=== PATIENT | male | born 1950 | race Caucasian/White ===

== ENCOUNTER 2022-10-20 02:14 | Emergency (ER) | payer MEDICARE, BC, SELFPAY ==
[2022-10-20 02:23] VITALS: BP 145/101; PULSE 77; RESP 18; TEMP 36.1; O2SAT 97; BMI 36.2
--- NOTE | 2022-10-20 02:36 | CRLHL7_ITS ---
For Patients: As a result of the Century Cures Act, medical imaging exams and procedure reports are released immediately into your electronic medical record. You may view this report before your referring provider. If you have questions, please contact your health care provider. INDICATION: Cough TECHNIQUE: Chest 2 views. COMPARISON: September 25, 2019 FINDINGS: Cardiovascular and mediastinum: Heart size and vasculature are normal in caliber and appearance. Mediastinum is within normal limits. Right-sided Port-A-Cath tip terminates at the level of the cavoatrial junction. Lungs and pleural spaces: Patchy opacity in the left lower lobe. No sign of pleural effusion. No pneumothorax. Bones and soft tissues: No significant findings. IMPRESSION: Patchy left lower lobe atelectasis or infiltrate. Dictated by Sofi Moseley MD @ 10/20/2022 3:30:41 AM (Electronically Signed)
[2022-10-20] MEDS: IPRAT-ALBUT 0.5-2.5 MG/3 ML NEB 1 NEB IH (02:40)
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
[2022-10-20 03:46] VITALS: BP 135/95; PULSE 67; RESP 18; O2SAT 95
== END 2022-10-20 03:49 | disposition home or self-care (01) ==
PROVIDERS: Emergency Provider Emergency Medicine
DX: J18.9 Pneumonia, unspecified organism (principal)
CPT/HCPCS: 71046; 94640; 99283; 99284

== ENCOUNTER 2022-10-30 01:54 | Emergency (ER) | payer MEDICARE, BC, SELFPAY ==
[2022-10-30 02:00] VITALS: BP 153/102; PULSE 95; RESP 28; TEMP 35.6; O2SAT 94
--- NOTE | 2022-10-30 02:01 | ED_ITS ---
HPI - General Adult General Time Seen by Provider: 02:01 Date Seen: 10/30/22 Chief complaint: Shortness of Breath/Dyspnea Stated complaint: coughing spams, hard time breathing Time Seen by Provider: 10/30/22 02:01 Source: patient and RN notes reviewed Mode of arrival: ambulatory Limitations: no limitations History of Present Illness HPI narrative: Patient is a 72-year-old male coming into the ER with difficulty breathing tonight. He has been feeling wheezy, short of breath and coughing. He has been using his albuterol inhaler 70 8 times a day. He has had a recent complex course with diagnosis of COVID September 24 and pulmonary embolism before that about a month, on Eliquis. He was recently into the ER with respiratory symptoms, was seen September 19. There was potential pneumonia on the chest x-ray, was given prednisone and antibiotics, was noted to be wheezing. He denies any fevers or night sweats. Patient is noted to have a port, has history of prostate cancer. Related Data Home Medications Medication Instructions Recorded Confirmed apixaban 5 mg tablet (Eliquis) 5 mg PO 09/24/22 aspirin 81 mg tablet,delayed 81 mg PO DAILY 09/24/22 10/20/22 release (Adult Aspirin Regimen) bupropion HCl 300 mg 24 hr tablet, 300 mg PO DAILY 09/24/22 10/20/22 extended release dorzolamide 22.3 mg-timolol 6.8 1 drp ophthalmic (eye-right) BID 09/24/22 10/20/22 mg/mL eye drops gabapentin 300 mg capsule 300 mg PO 09/24/22 losartan 100 mg tablet 100 mg PO DAILY 09/24/22 10/20/22 pantoprazole 40 mg tablet,delayed 40 mg PO DAILY 09/24/22 10/20/22 release simvastatin 40 mg tablet 40 mg PO QPM 09/24/22 10/20/22 Previous Rx's Medication Instructions Recorded albuterol sulfate 90 mcg/actuation 2 puff inhalation Q4H PRN 09/24/22 aerosol inhaler shortness of breath or wheezing #8.5 grams nirmatrelvir 300 mg (150 mg See Rx Instructions PO .COMPLEX 09/24/22 x2)-ritonavir 100 mg tablet,dose #30 ea pack (Paxlovid) prednisone 20 mg tablet 40 mg (2 x 20 mg) PO DAILY 5 days 09/24/22 #10 tabs ipratropium 0.5 mg-albuterol 3 mg 3 ml inhalation Q6H PRN #90 mL 10/30/22 (2.5 mg base)/3 mL nebulization soln Allergies Allergy/AdvReac Type Severity Reaction Status Date / Time shellfish derived Allergy Severe Verified 09/24/22 13:54 LESLI Inhibitors Allergy Intermediate Verified 09/24/22 13:54 typhoid vaccine Allergy Intermediate Verified 09/24/22 13:54 Review of Systems Status of ROS: Reports: 6 or more systems reviewed and unremarkable except as noted in History and below [facility] Social History Smoking Status: Never smoker Do you use any of these nicotine containing products: None How often do you have a drink containing alcohol: 2-3 times a week How many standard drinks containing alcohol do you have on a typical day: 1 or 2 AUDIT-C Alcohol total score: 3 Non-prescribed substance use: denies use service: Yes Exam Const: Vital Signs, click to edit/add: Vital Signs - 24 hr 10/30/22 02:00 10/30/22 02:06 Temperature 96.0 F L Pulse Rate [Right Pulse Oximeter] 95 Respiratory Rate 28 H Blood Pressure [Ri ght Upper Arm] 153/102 H Pulse Oximetry 94 94 Oxygen Delivery Me thod Room Air Documenting provider has reviewed patient's vital signs: yes Common normals: oriented x3, alert and well nourished General appearance: cooperative, well kempt, well developed and ill appearing Nutritional appearance: overweight Other: Skin feels cool, clammy, no rash noted. HENMT: Common normals: normocephalic, head/scalp atraumatic, hearing grossly normal bilaterally, external ears normal, external nose normal and moist oral mucous membranes Head and scalp: normocephalic and atraumatic Face and sin us: normal facial exam Nose: external nose normal External ear: external ears normal Eye: Common normals: PERRL, EOMs intact bilaterally, conjunctivae normal and no scleral icterus Conjunctiva: conjunctiva(e) normal Pupil: PERRL Neck & C-Spine: Common normals: full ROM, no lymphadenopathy, supple and no meningeal signs Resp: Effort & inspection: able to speak in complete sentences Other: Has audible wheezing, some component of forced end-expiratory wheezing. Voice is not hoarse. Do here wheezing in all lung rivera, no crackles. Cardio: Other: Heart sounds difficult to hear due to noisy chest. Does sound regular, cannot hear a murmur at this time. GI: Common normals: Normal to inspection, nondistended, normoactive bowel sounds present, soft to palpation, non-tender, no hepatosplenomegaly and no masses Palpation: soft and no hepatosplenomegaly Extremity: Common normals: no calf tenderness and no pedal edema Neuro: Common normals: oriented x3 Sensorium/orientation: alert Meningeal signs: no meningeal signs Psych: Appearance: well kempt Course Course Hospital Course: Patient with active respiratory difficulty with wheezing. History is complex with recent probable community-acquired pneumonia on the 18th of this month. Has had COVID in subsequent pulmonary emboli diagnosed. Is reporting increased use of his inhaler at home. Will does 40 mg oral steroids as well as a DuoNeb. Unfortunately there is significant shortage of IV steroids and will need to use oral. Will start with a portable chest x-ray, obtain further labs. Will look at cardiac markers to ensure that this is not ischemic disease, congestive heart failure. Again chest x-ray is pending as well. Will consider advanced imaging if need be. Reevaluation(s) Time of Reevaluation #1: 03:12 Reevaluation #1: Patient states he is actually feeling better. He is no longer coughing, can speak better, no wheezing. On auscultation of his lungs, somewhat distant breath sounds but no wheezing or crackles heard. Reviewed with him his labs are normal. My preliminary review of his chest x-ray is that there is no acute pathology, apices on this film our cut off but overall I see no acute pathology. I am not concerned about a pneumothorax given his symptoms and improvement with a nebulization. He is wondering if she could have a nebulizer at home. I do think this might be a good idea for him. I have also reviewed with him that it will be necessary to follow-up, do think that he should be considered for pulmonary function studies. At this time, does not appear that antibiotics are indicated but again we need to await the radiologist's over-read. Vital Signs Vital signs: Initial Vital Signs Temperature 96.0 F L 10/30/22 02:00 Temperature Source Temporal Artery Scan 10/30/22 02:00 Pulse Rate 95 10/30/22 02:00 Pulse Rhythm Regular 10/30/22 02:00 Respiratory Rate 28 H 10/30/22 02:00 Blood Pressure 153/102 H 10/30/22 02:00 Blood Pressure Mean 119 H 10/30/22 02:00 Blood Pressure Position Sitting 10/30/22 02:00 Pulse Oximetry 94 10/30/22 02:00 Oxygen Delivery Method Room Air 10/30/22 02:00 Vital Signs Temperature 96.0 F L 10/30/22 02:00 Pulse Rate 95 10/30/22 02:00 Respiratory Rate 28 H 10/30/22 02:00 Blood Pressure 153/102 H 10/30/22 02:00 Pulse Oximetry 94 10/30/22 02:00 Oxygen Delivery Method Room Air 10/30/22 02:00 Temperature 96.0 F L 10/30/22 02:00 Pulse Rate 95 10/30/22 02:00 Respiratory Rate 28 H 10/30/22 02:00 Blood Pressure 153/102 H 10/30/22 02:00 Pulse Oximetry 94 10/30/22 02:06 Oxygen Delivery Method Room Air 10/30/22 02:00 Medical Decision Making Lab Data Lab results reviewed: Yes I reviewed the patient's lab results Labs: Lab Results 10/30/22 10/30/22 Range/Units 02:07 02:20 WBC 6.72 (4.50-11.00) K/uL RBC 4.75 (4.30-5.90) m/uL Hgb 14.6 (13.5-17.5) gm/dL Hct 43.3 (37.0-53.0) % MCV 91 (80-100) fL MCH 31 (26-34) pg MCHC 34 (32-36) gm/dL RDW Coeff of Joe 13.5 (11.5-15.5) % Plt Count 212 (140-440) K/uL Neut % (Auto) 46.7 (42.0-72.0) % Lymph % (Auto) 29.8 (20-44) % [place] % (Auto) 14.7 H (0.0-11.0) % Eos % (Auto) 7.9 H (0.0-7.0) % Baso % (Auto) 0.3 (0.0-3.0) % Neut # (Auto) 3.14 (1.7-7.0) K/uL Lymph # (Auto) 2.00 (0.90-2.90) K/uL [place] # (Auto) 1.00 H (0.00-0.90) K/UL Eos # (Auto) 0.50 (0.00-0.50) K/uL Baso # (Auto) 0.02 (0.00-0.30) K/uL VBG pH 7.397 (7.32-7.43) VBG pCO2 44 (40-50) mmHG VBG pO2 36.8 (25-47) mmHG VBG HCO3 27 (21-28) mmol/L Sodium 137 (135-149) mmol/L Potassium 4.2 (3.6-5.1) mmol/L Chloride 104 (96-114) mmol/L Carbon Dioxide 27 (20-32) mmol/L BUN 21 (7-30) mg/dL Creatinine 0.9 (0.5-1.5) mg/dL Estimated GFR 91 ml/min Glucose 117 H (60-115) mg/dL Lactate 0.9 (0.5-1.9) mmol/L Calcium 9.5 (8.4-10.6) mg/dL Total Bilirubin 0.7 (0.1-1.5) mg/dL AST 31 (12-35) U/L ALT 35 (4-50) U/L Alkaline Phosphatase 66 (40-150) U/L C-Reactive Protein 0.8 (0.5-1.0) mg/dL NT-Pro-B Natriuret Pep 38 pg/mL Total Protein 7.0 (6.0-8.3) g/dL Albumin 4.2 (3.3-5.0) g/dL POC Troponin I 0.00 L (0.01-0.04) ng/ml Imaging Data Chest x-ray: Attestation: I have reviewed the pertinent imaging results. My impression: The apices of the lungs are cut off in the imaging. Rest of the lung rivera show no evidence infiltrate, no effusion, no congestive heart failure on my preliminary review. Radiologist's impression: Patient: SAIRA BOLTON Facility:?[facility] Patient ID:?[id number] Site Patient ID:?[id number]. Site :?[id number] Study:?XRay Chest PORTABLE 1V-10/30/2022 3:07:02 AM Ordering Physician:Maverick Morgan Final Report: Indication: Shortness of breath, wheeze seen Technique: Chest 1 view Comparison: None Findings/Impression: The lung apices are excluded from this study. Visualized lung and pleural spaces demonstrate no focal infiltrate, effusion, or pneumothorax. Normal cardiac size. Right-sided Port-A-Cath tip terminates at the level of the cavoatrial junction. No acute osseous abnormality. Dictated by Sofi Moseley MD @ 10/30/2022 3:11:11 AM (Electronic Signature) ECG Data Attestation: I personally reviewed and interpreted this ECG as follows: (Normal sinus rhythm, 81 beats per minute. No acute change noted. QT corrected 439 milliseconds.) Prior ECG tracings: not available for review Discharge Plan Discharge Clinical Impression: Acute bronchospasm Patient Disposition: Home, Self-Care Condition: Stable Instructions: Bronchospasm (ED) Additional Instructions: Start oral prednisone on 10/31/2022, you were given 40 mg here in the ER. Get nebulizer, use DuoNebs as prescribed if needed for wheezing or cough. You can use your albuterol inhaler when you are not at home and in between nebulization if needed. You do need to schedule a follow-up in clinic, talk to her primary care provider about the possibility of doing formal pulmonary function testing if ongoing symptoms. Need to continue your regular medications including Eliquis. No evidence of any pneumonia or infectious etiology that would require antibiotics at this time. If you find that you are having increased difficulty breathing, develops fever with worsening cough, do recommend re-evaluation. Activity Level: Activity as Tolerated Prescriptions: New ipratropium-albuterol 0.5 mg-3 mg(2.5 mg base)/3 mL solution for nebulization 3 ml inhalation Q6H PRNQty: 90 0RF No Action simvastatin 40 mg tablet 40 mg PO QPM Hold Instructions: Doctor's Order pantoprazole 40 mg tablet,delayed release (DR/EC) 40 mg PO DAILY gabapentin 300 mg capsule 300 mg PO dorzolamide-timolol 22.3-6.8 mg/mL drops 1 drp ophthalmic (eye-right) BID losartan 100 mg tablet 100 mg PO DAILY bupropion HCl 300 mg tablet extended release 24 hr 300 mg PO DAILY Eliquis 5 mg tablet 5 mg PO aspirin [Adult Aspirin Regimen] 81 mg tablet,delayed release (DR/EC) 81 mg PO DAILY Hold Instructions: Doctor's Order albuterol sulfate 90 mcg/actuation HFA aerosol inhaler 2 puff inhalation Q4H PRN (Reason: shortness of breath or wheezing) Qty: 8.5 0RF Paxlovid 300 mg (150 mg x 2)-100 mg tablets,dose pack See Rx Instructions .ROUTE .COMPLEX Qty: 30 0RF Rx Instructions: take TWO 150 mg tablets of nirmatrelvir with ONE 100 mg tablet of ritonavir twice daily for 5 days prednisone 20 mg tablet 40 mg PO DAILY 5 Days Qty: 10 0RF Follow Up/Referrals: Provider,Not a Local [Primary Care Provider] - Stand Alone Forms: [employer] Info Instructions
[2022-10-30 02:06] VITALS: O2SAT 94
--- NOTE | 2022-10-30 02:06 | CRLHL7_ITS ---
For Patients: As a result of the Century Cures Act, medical imaging exams and procedure reports are released immediately into your electronic medical record. You may view this report before your referring provider. If you have questions, please contact your health care provider. Indication: Shortness of breath, wheeze seen Technique: Chest 1 view Comparison: None Findings/Impression: The lung apices are excluded from this study. Visualized lung and pleural spaces demonstrate no focal infiltrate, effusion, or pneumothorax. Normal cardiac size. Right-sided Port-A-Cath tip terminates at the level of the cavoatrial junction. No acute osseous abnormality. Dictated by Sofi Moseley MD @ 10/30/2022 3:11:11 AM (Electronically Signed)
[2022-10-30] MEDS: IPRAT-ALBUT 0.5-2.5 MG/3 ML NEB 1 NEB IH (02:10)
[2022-10-30 02:28] LABS: HCO3 VBG 27 mmol/L (21-28); PCO2 VBG 44 mmHG (40-50); PO2 VBG 36.8 mmHG (25-47); pH VBG 7.397 (7.32-7.43)
[2022-10-30 02:30] LABS: Basophils Absolute Auto 0.02 K/uL (0.00-0.30); Basophils Percent Auto 0.3 % (0.0-3.0); Eosinophils Percent Auto 7.9 % (0.0-7.0); Hematocrit 43.3 % (37.0-53.0); Hemoglobin* 14.6 gm/dL (13.5-17.5); Immature Granulocytes Abs Auto 0.04 K/uL (0.00-0.30); Immature Granulocytes Pct Auto 0.6 %; Lactate* 0.9 mmol/L (0.5-1.9); Lymphocytes Percent Auto 29.8 % (20-44); Mean Corpuscular HGB Conc 34 gm/dL (32-36); Mean Corpuscular Hemoglobin 31 pg (26-34); Mean Corpuscular Volume 91 fL (80-100); Monocytes Percent Auto 14.7 % (0.0-11.0); Neutrophils Absolute Auto 3.14 K/uL (1.7-7.0); Neutrophils Percent Auto 46.7 % (42.0-72.0); Platelet Count* 212 K/uL (140-440); RDW Coefficient of Variation % 13.5 % (11.5-15.5); Red Blood Count 4.75 m/uL (4.30-5.90); White Blood Count* 6.72 K/uL (4.50-11.00)
--- NOTE | 2022-10-30 02:30 | ED.NURSE ---
Right upper chest port accessed with james needle, no complications. blood drawn for labs and flushed with saline. Heparin ordered for deaccessing on discharge.
[2022-10-30 02:32] LABS: Slide Review Reflex No
[2022-10-30] MEDS: predniSONE 20 MG TABLET 40 MG PO (02:43)
[2022-10-30 02:44] LABS: Albumin* 4.2 g/dL (3.3-5.0); Chloride* 104 mmol/L (96-114); Sodium* 137 mmol/L (135-149)
[2022-10-30 02:45] LABS: Potassium* 4.2 mmol/L (3.6-5.1)
[2022-10-30 02:47] LABS: Alanine Aminotransferase* 35 U/L (4-50); Alkaline Phosphatase* 66 U/L (40-150); Aspartate Amino Transferase* 31 U/L (12-35); Bilirubin Total* 0.7 mg/dL (0.1-1.5); Blood Urea Nitrogen* 21 mg/dL (7-30); Carbon Dioxide* 27 mmol/L (20-32); Creatinine* 0.9 mg/dL (0.5-1.5); Estimated Glomerular Filt Rate 91 ml/min
[2022-10-30 02:48] LABS: Calcium* 9.5 mg/dL (8.4-10.6); Glucose* 117 mg/dL (60-115)
[2022-10-30 02:50] LABS: C Reactive Protein* 0.8 mg/dL (0.5-1.0)
[2022-10-30 02:56] LABS: NT Pro B Type NatriureticPept* 38 pg/mL
[2022-10-30 03:19] VITALS: PULSE 81; RESP 20; O2SAT 95
[2022-10-30] MEDS: HEPARIN 500 UNIT/5 ML SYRINGE IVF (03:26)
== END 2022-10-30 03:29 | disposition home or self-care (01) ==
PROVIDERS: Emergency Provider Family Medicine
DX: J98.01 Acute bronchospasm (principal)
CPT/HCPCS: 36415; 71045; 80053; 82803; 83605; 83880; 84484; 85025; 86140; 93005; 94640; 94761; 99284; 99285; J1642; J7512

== ENCOUNTER 2022-12-05 03:00 | Emergency (ER) | payer MEDICARE, BC, SELFPAY ==
[2022-12-05 03:06] VITALS: BP 148/91; PULSE 87; RESP 22; TEMP 36.8; O2SAT 94; BMI 35.5
--- NOTE | 2022-12-05 03:24 | CRLHL7_ITS ---
For Patients: As a result of the Century Cures Act, medical imaging exams and procedure reports are released immediately into your electronic medical record. You may view this report before your referring provider. If you have questions, please contact your health care provider. INDICATION: Dyspnea, cough. TECHNIQUE: Chest 2 views. COMPARISON: 10/30/2022. FINDINGS: Cardiovascular and mediastinum: Heart size and vasculature are normal in caliber and appearance. Unchanged right port catheter. Lungs and pleural spaces: Lungs are clear. No sign of infiltrate or mass. No sign of pleural effusion. No pneumothorax. Bones and soft tissues: No significant findings. IMPRESSION: No acute pulmonary process. Dictated by Abelardo Díaz MD @ 12/05/2022 4:17:56 AM (Electronically Signed)
--- NOTE | 2022-12-05 03:27 | ED_ITS ---
HPI - General Adult General Chief complaint: Shortness of Breath/Dyspnea Stated complaint: short of breath Time Seen by Provider: 12/05/22 03:02 Source: patient Mode of arrival: ambulatory Limitations: no limitations History of Present Illness HPI narrative: 72-year-old male with ongoing pulmonary struggles since July presents to the emergency department for evaluation of cough and wheezing. Apparently this is being worked up extensively by his primary care provider. Reports that his provider is through [facility], I do not have access to those records. He reports that he has had a chest CT within the last 2 months. He reports that this was unrevealing, did not change his treatment. 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 He does not remember what the medication is. He reports that he has been on prednisone for the last couple of months, does not know his dose. I cannot tell if this is a burst or a taper. He is completely unsure. He has been referred to a computer networking instructor adjunct and has an upcoming appointment. When I asked specifically what changed tonight, it is difficult for me to determine if his symptoms have been worsening over a long or short period of time. I asked about duration and worsening a couple of times directly and he does not answer at clearly. He denies fevers. There is no productive sputum, no hemoptysis. He has a remote history of a pulmonary embolism and is anticoagulated on Eliquis. He denies any exertional chest pain or chest pain at rest. He reports good compliance with his Eliquis. Apparently he has had spirometry within the last couple of weeks as well, I do not have access to those records either. He reports that he lost both his phone and I pad today and therefore cannot look up the results of the CT scan, spirometry or his medication list for me. He denies any pertinent travel. No known sick contacts. It sounds as though his symptoms started after COVID a few months ago. He reports that he has been evaluated in the emergency department a couple of times. There is a note that I can review from 5 weeks ago this sounds fairly similar to his current presentation. He is a nonsmoker and denies a history of COPD. He feels short of breath at rest but it does not worsen on exertion per his description. He has been using his albuterol nebulizer which helps minimally. Notes from 10/30 reviewed. Past medical history notable for remote history of prostate cancer, hypertension and hyperlipidemia, subacute pulmonary embolism on Eliquis, current workup for some degree of lung dysfunction. Medications that I can see through our records do not seem accurate based on his description. Unfortunately I do not have an accurate medication list despite attempting to get 1. Allergies reviewed. Socially he is a nonsmoker, lives independently. ROS is notable for the respiratory symptoms as above only, otherwise denies times 12 systems. Related Data Home Medications Medication Instructions Recorded Confirmed apixaban 5 mg tablet (Eliquis) 5 mg PO BID 09/24/22 12/05/22 bupropion HCl 300 mg 24 hr tablet, 300 mg PO DAILY 09/24/22 12/05/22 extended release dorzolamide 22.3 mg-timolol 6.8 1 drp ophthalmic (eye-right) BID 09/24/22 12/05/22 mg/mL eye drops gabapentin 300 mg capsule 300 mg PO BID 09/24/22 12/05/22 losartan 100 mg tablet 100 mg PO DAILY 09/24/22 12/05/22 pantoprazole 40 mg tablet,delayed 40 mg PO DAILY 09/24/22 12/05/22 release simvastatin 40 mg tablet 40 mg PO QPM 09/24/22 10/20/22 Previous Rx's Medication Instructions Recorded albuterol sulfate 90 mcg/actuation 2 puff inhalation Q4H PRN 09/24/22 aerosol inhaler shortness of breath or wheezing #8.5 grams ipratropium 0.5 mg-albuterol 3 mg 3 ml inhalation Q6H PRN #90 mL 10/30/22 (2.5 mg base)/3 mL nebulization soln benzonatate 200 mg capsule 200 mg PO BID PRN cough #60 caps 12/05/22 inhalational spacing device #1 ea 12/05/22 (Aerochamber MV spacer) ipratropium 0.5 mg-albuterol 3 mg 3 ml inhalation BID #180 mL 12/05/22 (2.5 mg base)/3 mL nebulization soln prednisone 20 mg tablet 20 mg PO BID #10 tabs 12/05/22 Allergies Allergy/AdvReac Type Severity Reaction Status Date / Time shellfish derived Allergy Severe Anaphylaxis Verified 12/05/22 03:54 LESLI Inhibitors Allergy Intermediate Rash Verified 12/05/22 03:54 typhoid vaccine Allergy Intermediate Hives Verified 12/05/22 03:54 [facility] Social History Smoking Status: Never smoker Do you use any of these nicotine containing products: None How often do you have a drink containing alcohol: 2-3 times a week How many standard drinks containing alcohol do you have on a typical day: 1 or 2 AUDIT-C Alcohol total score: 3 Non-prescribed substance use: denies use service: Yes Exam Const: Vital Signs, click to edit/add: Vital Signs - 24 hr 12/05/22 03:06 12/05/22 03:30 Temperature 98.2 F Pulse Rate [Left P ulse Oximeter] 87 Respiratory Rate 22 Blood Pressure [Le ft Upper Arm] 148/91 H Pulse Oximetry 94 96 Oxygen Delivery Me thod Room Air Common normals: alert General appearance: well kempt Orientation/consciousness: Yes awake Other: Audible wheeze upon entering room. Frequent cough. No tachypnea but does seem to have mild increased work of breathing. No cyanosis. Sour disposition. HENMT: Common normals: normocephalic and head/scalp atraumatic Head and scalp: normocephalic and atraumatic Face and sinus: normal facial exam Mouth: oral and palatal mucosa normal Throat: posterior oropharynx normal Eye: Common normals: conjunctivae normal General eye: normal appearance of both eyes Conjunctiva: conjunctiva(e) normal Neck & C-Spine: Common normals: full ROM and no lymphadenopathy Chest: Common normals: inspection of chest normal Resp: Other: Mildly increased respiratory effort, frequent dry cough. Audible wheezing even without stethoscope. Pulmonary auscultation shows expiratory wheezing, no inspiratory wheezing. Prolongation of expiration by about a 4-1 ratio. Wheezing is course in nature. No obvious crackles. Good air movement. Cardio: Common normals: regular rate, regular rhythm, S1 normal heart sound, S2 normal heart sound and no murmurs Rate: regular rate Rhythm: regular rhythm Heart sounds: S1 normal and S2 normal GI: Common normals: Normal to inspection, nondistended, normoactive bowel sounds present and no hepatosplenomegaly Palpation: no hepatosplenomegaly Extremity: Common normals: no pedal edema Neuro: Sensorium/orientation: awake and alert Motor exam: strength 5/5 throughout and no movement abnormalities noted Psych: Appearance: well kempt Attitude: engaged Insight: insight good Judgement: judgment good Skin: Common normals: no rashes or lesions noted General skin exam: no rashes or lesions noted Course Course Hospital Course: Differential diagnosis including congestive heart failure, asthma exacerbation, COPD, pneumonia, bronchospasm, cardiac disease, pulmonary embolism, among others. Patient is not tachycardic and is not masked by beta-blockers. Thankfully he is not hypoxic. His oxygen levels do not decrease with conversation, consistently staying above 96% for me during my exam. Audible wheezing is most suggestive of a bronchospastic type process. Would recommend chest x-ray, EKG, basic labs. Will start with 60 mg of IV Solu-Medrol and DuoNeb, reassess. I will have other staff attempt to obtain his proper med list and chest CT results from outside records. Typically we do not have [place] access. Reevaluation(s) Time of Reevaluation #1: 04:37 Reevaluation #1: Patient is having significant improvement after the DuoNeb, IV steroid and Tessalon Perles. He will continue trying to get in with the computer networking instructor adjunct. All lab reports and x-ray findings reviewed with patient. We discussed a prednisone burst, DuoNebs at home, use of an inhalational spacer with his albuterol and since they were helpful, the Tessalon Perles. All prescriptions sent to pharmacy. Alarm symptoms reviewed that would warrant ED presentation. He verbalizes understanding and agreement. Exacerbation of chronic lung disease, no evidence of bacterial infection, pneumonia, cardiac complication. Prednisone burst and additional prescriptions as prescribed. Vital Signs Vital signs: Initial Vital Signs Temperature 98.2 F 12/05/22 03:06 Temperature Source Temporal Artery Scan 12/05/22 03:06 Pulse Rate 87 12/05/22 03:06 Respiratory Rate 22 12/05/22 03:06 Blood Pressure 148/91 H 12/05/22 03:06 Blood Pressure Mean 110 H 12/05/22 03:06 Blood Pressure Position Sitting 12/05/22 03:06 Pulse Oximetry 94 12/05/22 03:06 Oxygen Delivery Method Room Air 12/05/22 03:06 Vital Signs Temperature 98.2 F 12/05/22 03:06 Pulse Rate 87 12/05/22 03:06 Respiratory Rate 22 12/05/22 03:06 Blood Pressure 148/91 H 12/05/22 03:06 Pulse Oximetry 94 12/05/22 03:06 Oxygen Delivery Method Room Air 12/05/22 03:06 Temperature 98.2 F 12/05/22 03:06 Pulse Rate 87 12/05/22 03:06 Respiratory Rate 22 12/05/22 03:06 Blood Pressure 148/91 H 12/05/22 03:06 Pulse Oximetry 96 12/05/22 03:30 Oxygen Delivery Method Room Air 12/05/22 03:06 Medical Decision Making Lab Data Lab results reviewed: Yes I reviewed the patient's lab results Lab results narrative: All reassuring Labs: Lab Results 12/05/22 12/05/22 12/05/22 Range/Units 03:30 03:35 03:58 WBC 9.21 (4.50-11.00) K/uL RBC 4.65 (4.30-5.90) m/uL Hgb 14.4 (13.5-17.5) gm/dL Hct 42.5 (37.0-53.0) % MCV 91 (80-100) fL MCH 31 (26-34) pg MCHC 34 (32-36) gm/dL RDW Coeff of Joe 13.9 (11.5-15.5) % Plt Count 223 (140-440) K/uL Neut % (Auto) 50.6 (42.0-72.0) % Lymph % (Auto) 28.8 (20-44) % [place] % (Auto) 10.3 (0.0-11.0) % Eos % (Auto) 9.1 H (0.0-7.0) % Baso % (Auto) 0.3 (0.0-3.0) % Neut # (Auto) 4.66 (1.7-7.0) K/uL Lymph # (Auto) 2.65 (0.90-2.90) K/uL [place] # (Auto) 0.90 (0.00-0.90) K/UL Eos # (Auto) 0.80 H (0.00-0.50) K/uL Baso # (Auto) 0.03 (0.00-0.30) K/uL Abs Immat Gran (auto) 0.08 (0.00-0.30) K/uL Imm/Tot Granulo (auto) 0.9 % Sodium 141 (135-149) mmol/L Potassium 3.6 (3.6-5.1) mmol/L Chloride 108 (96-114) mmol/L Carbon Dioxide 27 (20-32) mmol/L BUN 45 H (7-30) mg/dL Creatinine 1.1 (0.5-1.5) mg/dL Estimated Creat Clear 66.63 Estimated GFR 71 ml/min Glucose 119 H (60-115) mg/dL Calcium 9.7 (8.4-10.6) mg/dL C-Reactive Protein < 0.5 L (0.5-1.0) mg/dL NT-Pro-B Natriuret Pep 137 pg/mL SARS-CoV-2 (PCR) Negative SARS-CoV-2 (Negative) Influenza Type A (PCR) Negative PCR FLU A (Negative) Influenza Type B (PCR) Negative PCR FLU B (Negative) RSV (PCR) Negative PCR RSV (Negative) SARS-CoV-2 Ag (Rapid) negative (Negative) Lab Acknowledgement Test Added POC Troponin I 0.00 L (0.01-0.04) ng/ml Imaging Data Chest x-ray: Attestation: I have reviewed the pertinent imaging results. My impression: Negative chest x-ray Radiologist's impression: IMPRESSION: No acute pulmonary process. ECG Data Attestation: I personally reviewed and interpreted this ECG as follows: Prior ECG tracings: available for review Interpretation: Normal sinus rhythm, rate 83. Normal axis. No significant ST or T-wave abnormalities. Normal EKG Discharge Plan Discharge Clinical Impression: Acute exacerbation of chronic obstructive pulmonary disease Patient Disposition: Home, Self-Care Condition: Improved Instructions: Wheezing (ED) Additional Instructions: I am glad that the increased dose of steroid and the breathing treatments and Perles seem to be helping you. I do agree that you need to see a computer networking instructor adjunct, I am glad that that referral is already in the works. I am not sure how much prednisone your taking on a daily basis but I suspect that it is a lower maintenance dose. For the next 5 days, I would like for you to be on a burst dose. Your given a large dose of IV steroids here in the emergency department. I would like for you to take 20 mg of prednisone twice daily for the next 5 days. Take your next dose early this afternoon. Continue taking it twice daily as prescribed. I do not recommend taking it within 4 hours of bedtime as it can make it difficult to sleep, but try to space your doses apart at least 8 hours. After you have completed your 5 day course, go back to your previous prednisone dosing. I have given her prescription for DuoNeb solution. This has albuterol plus ipratropium which helps break apart the mucus. Use this twice daily regardless of how you feel. You may also use the albuterol up to every 2 hours in between. I have prescribed a spacer to use with your albuterol inhaler, we discussed the rationale for this. It does help the medication worked much better. I have also given you a supply of Tessalon Perles. These work well for about a 3rd of people at reducing the spasm reflex that makes you cough. Unfortunately, it will not treat the underlying reasons nor the wheezing. My hope is that it will help you sleep. It is okay to use melatonin and or Tylenol p.m. as a sleep aid also. Update your primary care provider if you are not continuing to improve in the next 24 hours. Come back to the emergency department with any severe shortness of breath. Activity Level: No Restrictions Discharge Diet: Regular Prescriptions: New prednisone 20 mg tablet 20 mg PO BID Qty: 10 0RF benzonatate 200 mg capsule 200 mg PO BID PRN (Reason: cough) Qty: 60 1RF (DME) Aerochamber MV Spacer See Rx Instructions .Route Qty: 1 0RF Rx Instructions: As directed ipratropium-albuterol 0.5 mg-3 mg(2.5 mg base)/3 mL solution for nebulization 3 ml inhalation BID Qty: 180 1RF No Action ipratropium-albuterol 0.5 mg-3 mg(2.5 mg base)/3 mL solution for nebulization 3 ml inhalation Q6H PRNQty: 90 0RF simvastatin 40 mg tablet 40 mg PO QPM Hold Instructions: Doctor's Order pantoprazole 40 mg tablet,delayed release (DR/EC) 40 mg PO DAILY gabapentin 300 mg capsule 300 mg PO BID Rx Instructions: take 1 capsule during the day and 2 capsules at bedtime dorzolamide-timolol 22.3-6.8 mg/mL drops 1 drp ophthalmic (eye-right) BID losartan 100 mg tablet 100 mg PO DAILY bupropion HCl 300 mg tablet extended release 24 hr 300 mg PO DAILY Eliquis 5 mg tablet 5 mg PO BID albuterol sulfate 90 mcg/actuation HFA aerosol inhaler 2 puff inhalation Q4H PRN (Reason: shortness of breath or wheezing) Qty: 8.5 0RF Follow Up/Referrals: Provider,Not a Local [Primary Care Provider] - Stand Alone Forms: SupportPayth Info Instructions
[2022-12-05 03:30] VITALS: O2SAT 96
[2022-12-05] MEDS: METHYLPREDNISOLONE SOD SUCC 62.5 MG/ML (125) 60 MG IVP (03:43)
[2022-12-05] MEDS: IPRAT-ALBUT 0.5-2.5 MG/3 ML NEB 1 NEB IH (03:43)
[2022-12-05 03:59] LABS: Chloride* 108 mmol/L (96-114); Potassium* 3.6 mmol/L (3.6-5.1); SARS Antigen* negative (Negative); Sodium* 141 mmol/L (135-149)
[2022-12-05 04:02] LABS: Creatinine* 1.1 mg/dL (0.5-1.5); Est. Creatinine Clearance* 66.63; Estimated Glomerular Filt Rate 71 ml/min
[2022-12-05 04:03] LABS: Blood Urea Nitrogen* 45 mg/dL (7-30); Calcium* 9.7 mg/dL (8.4-10.6); Carbon Dioxide* 27 mmol/L (20-32); Glucose* 119 mg/dL (60-115)
[2022-12-05 04:05] LABS: Basophils Absolute Auto 0.03 K/uL (0.00-0.30); Basophils Percent Auto 0.3 % (0.0-3.0); Eosinophils Percent Auto 9.1 % (0.0-7.0); Hematocrit 42.5 % (37.0-53.0); Hemoglobin* 14.4 gm/dL (13.5-17.5); Immature Granulocytes Abs Auto 0.08 K/uL (0.00-0.30); Immature Granulocytes Pct Auto 0.9 %; Lymphocytes Absolute Auto 2.65 K/uL (0.90-2.90); Lymphocytes Percent Auto 28.8 % (20-44); Mean Corpuscular HGB Conc 34 gm/dL (32-36); Mean Corpuscular Hemoglobin 31 pg (26-34); Mean Corpuscular Volume 91 fL (80-100); Monocytes Percent Auto 10.3 % (0.0-11.0); Neutrophils Absolute Auto 4.66 K/uL (1.7-7.0); Neutrophils Percent Auto 50.6 % (42.0-72.0); Platelet Count* 223 K/uL (140-440); RDW Coefficient of Variation % 13.9 % (11.5-15.5); Red Blood Count 4.65 m/uL (4.30-5.90); White Blood Count* 9.21 K/uL (4.50-11.00)
[2022-12-05 04:06] LABS: C Reactive Protein* < 0.5 mg/dL (0.5-1.0); Slide Review Reflex No
[2022-12-05 04:12] LABS: NT Pro B Type NatriureticPept* 137 pg/mL
[2022-12-05 04:18] LABS: PCR FLU A Negative PCR FLU A (Negative); PCR FLU B Negative PCR FLU B (Negative); PCR RSV Negative PCR RSV (Negative)
[2022-12-05 04:19] LABS: SARS PCR* Negative SARS-CoV-2 (Negative)
[2022-12-05 04:48] VITALS: BP 141/79; PULSE 87; RESP 22; TEMP 37; O2SAT 98
== END 2022-12-05 04:53 | disposition home or self-care (01) ==
PROVIDERS: Emergency Provider Family Medicine
DX: J44.1 Chronic obstructive pulmonary disease with (acute) exacerbation (principal)
CPT/HCPCS: 36415; 71046; 80048; 83880; 84484; 85025; 86140; 87426; 87631; 93005; 94640; 94761; 96374; 99284; 99285; J2930